=== PATIENT | male | born 1955 | race Caucasian/White ===

== ENCOUNTER 2018-01-30 11:43 | Outpatient (CLI) | payer OTHER ==
[2018-01-30 20:19] VITALS: BP 114/52; BP 118/55; BP 129/61; BP 136/62
[2018-01-30 20:25] VITALS: BP 107/49
--- NOTE | 2018-01-30 23:38 | NUR ---
PATIENT ARRIVED AT 1935 FOR BLOOD TRANSFUSION. BLOOD INFUSED WITHOUT SIDE EFFECTS, AT BEDSIDE, CT SCAN COMPLETED WHILE HERE. PATIENT LEFT AT 2337 WITH NURSING STAFF AND TO FAMILY CAR. PT PLEASANT. VITALS SIGN AND BLOOD DOCUMENTATION COMPLETED.
== END 2018-01-30 23:38 | disposition home or self-care (01) ==
LOC: M.INFUS 11:43 → M.LAB 15:00 → M.INFUS 15:00 → M.3W 19:35 → M.INFUS 23:38
DX: D64.9 Anemia, unspecified (principal); C78.7 Secondary malignant neoplasm of liver and intrahepatic bile duct; C79.89 Secondary malignant neoplasm of other specified sites

== ENCOUNTER → 2018-01-30 | Outpatient (CLI) | payer OTHER | LOC: M.RAD 21:52 | DX: C25.4 Malignant neoplasm of endocrine pancreas (principal); C78.7 Secondary malignant neoplasm of liver and intrahepatic bile duct; E27.9 Disorder of adrenal gland, unspecified; R16.0 Hepatomegaly, not elsewhere classified; Z85.030 Personal history of malignant carcinoid tumor of large intestine ==

== ENCOUNTER → 2018-05-19 | Outpatient (CLI) | payer OTHER | LOC: M.CT 15:58 | DX: C7B.8 Other secondary neuroendocrine tumors (principal); K76.89 Other specified diseases of liver; J98.11 Atelectasis; K46.9 Unspecified abdominal hernia without obstruction or gangrene ==

== ENCOUNTER 2018-09-02 20:50 | Emergency (ER) | payer OTHER ==
[~2018-09-02] VITALS: Ht 185.4 cm; Wt 90.7 kg
[2018-09-02] MEDS ORDERED: CALCIUM ACETAT667 MG PO (21:01)
[2018-09-02] MEDS ORDERED: PRAVACHOL20 MG PO (21:01)
[2018-09-02] MEDS ORDERED: CREON DR 12,001 EACH PO ×2 (21:02)
[2018-09-02] MEDS ORDERED: CENTRUM SILVER1 EAC4 PO (21:02)
[2018-09-02 21:49] LABS: HEMATOCRIT 29.7 % (42.0-52.0); HEMOGLOBIN 9.9 gm/dL (14.0-18.0); MCH 32.2 pg (26.0-34.0); MCHC 33.5 g/dL (28.0-37.0); MCV 96.3 fL (80.0-100.0); MPV 7.2 fl. (7.2-11.1); NUCLEATED RBCS 0 /100WBC; PLATELET COUNT* 184 thou/uL (150-400); RBC 3.08 mil/uL (4.50-6.00); RDW-CV 15.5 % (10.5-14.5); WBC 7.9 thou/uL (4.0-11.0)
[2018-09-02 21:58] LABS: CALCIUM 8.9 mg/dL (8.5-10.1); CREATININE 4.4 mg/dL (0.6-1.3); POTASSIUM 3.7 mmol/L (3.5-5.1)
[2018-09-02 22:02] LABS: ALBUMIN 2.8 g/dL (3.4-5.0); TOTAL BILIRUBIN 0.5 mg/dL (<0.1-1.0); TOTAL PROTEIN 7.3 g/dL (6.4-8.2)
[2018-09-02 22:17] LABS: ABSOLUTE LYMPHOCYTES 0.9 thou/uL (0.8-5.3); ABSOLUTE MONOCYTES 0.4 thou/uL (0.0-1.2); ABSOLUTE NEUTROPHILS 6.6 thou/uL (1.6-8.1); ANISOCYTOSIS 1+; ATYPICAL LYMPHS 1 %; GIANT PLATELETS OCCASIONAL; OVALOCYTES Occasional; PLATELET ESTIMATE ADEQUATE; POLYCHROMASIA Occasional; TEARDROPS Occasional; TOXIC GRANULATION Occasional
[2018-09-03] MEDS ORDERED: HYDROCODON-ACE1 EAC8 PO (00:39)
[2018-09-03 01:04] VITALS: BP 152/77
== END 2018-09-03 01:05 | disposition home or self-care (01) ==
LOC: M.ERS 20:50
PROVIDERS: Physician Assistant
DX: R10.84 Generalized abdominal pain (principal); R10.11 Right upper quadrant pain; Z88.8 Allergy status to other drugs, medicaments and biological substances; Z99.2 Dependence on renal dialysis

== ENCOUNTER 2018-09-08 10:34 | Inpatient (IN) | payer OTHER ==
[~2018-09-08] VITALS: Ht 185.4 cm; Wt 90.7 kg
[~2018-09-08 10:34] MED LIST: CALCIUM ACETAT667 MG PO; CENTRUM SILVER1 EAC4 PO; CREON DR 12,001 EACH PO; HYDROCODON-ACE1 EAC8 PO; PRAVACHOL20 MG PO
[2018-09-08 10:39] VITALS: BP 152/74
[2018-09-08 11:28] LABS: HEMATOCRIT 28.9 % (42.0-52.0); HEMOGLOBIN 9.4 gm/dL (14.0-18.0); MCH 31.1 pg (26.0-34.0); MCHC 32.6 g/dL (28.0-37.0); MCV 95.6 fL (80.0-100.0); MPV 7.4 fl. (7.2-11.1); NUCLEATED RBCS 0 /100WBC; PLATELET COUNT* 166 thou/uL (150-400); RBC 3.02 mil/uL (4.50-6.00); RDW-CV 16.5 % (10.5-14.5); WBC 11.6 thou/uL (4.0-11.0)
[2018-09-08 11:34] LABS: INR 1.2; PROTIME 12.4 Seconds (9.20-11.50)
[2018-09-08 11:35] LABS: CALCIUM 9.2 mg/dL (8.5-10.1); CREATININE 5.7 mg/dL (0.6-1.3); POTASSIUM 4.4 mmol/L (3.5-5.1)
[2018-09-08 11:39] LABS: ALBUMIN 2.1 g/dL (3.4-5.0); TOTAL BILIRUBIN 0.4 mg/dL (<0.1-1.0); TOTAL PROTEIN 6.7 g/dL (6.4-8.2)
[2018-09-08 12:00] LABS: INFLUENZA A ANTIGEN None Detected (None Detect); INFLUENZA B ANTIGEN None Detected (None Detect)
[2018-09-08 12:13] LABS: ABSOLUTE BASOPHILS 0.1 thou/uL (0.0-0.2); ABSOLUTE LYMPHOCYTES 1.2 thou/uL (0.8-5.3); ABSOLUTE NEUTROPHILS 9.3 thou/uL (1.6-8.1)
[2018-09-08 12:14] LABS: HYPOCHROMASIA 1+; MICROCYTES 1+; PLATELET ESTIMATE ADEQUATE
[2018-09-08 12:15] LABS: TOXIC GRANULATION 1+
[2018-09-08 12:49] LABS: URINE BILIRUBIN NEGATIVE (Negative); URINE BLOOD TRACE (Negative); URINE CLARITY CLEAR; URINE COLOR YELLOW; URINE GLUCOSE-RANDOM NEGATIVE (Negative); URINE KETONES NEGATIVE (Negative); URINE LEUKOCYTES-REFLEX NEGATIVE (Negative); URINE NITRITE-REFLEX NEGATIVE (Negative); URINE PROTEIN 2+ (Negative); URINE UROBILINOGEN 0.2 E.U./dl (0.2-1.0)
[2018-09-08 13:00] LABS: BACTERIA-REFLEX 1-9 Few /HPF (None Seen); CASTS None Seen /LPF (None Seen); CRYSTALS None Seen /LPF (None Seen); MUCUS None Seen strn/LPF (None Seen); SQUAMOUS 0-3 Few /LPF (0-3); URINE RBC 3-10 Few /HPF (0-2); URINE WBC-REFLEX 0-5 Rare /HPF (0-5)
[2018-09-08 19:16] VITALS: BP 120/85
[2018-09-08 21:00] VITALS: BP 128/68
[2018-09-09 04:24] LABS: HEMATOCRIT 27.3 % (42.0-52.0); HEMOGLOBIN 8.8 gm/dL (14.0-18.0); MCH 31.6 pg (26.0-34.0); MCHC 32.5 g/dL (28.0-37.0); MCV 97.3 fL (80.0-100.0); MPV 7.3 fl. (7.2-11.1); RBC 2.8 mil/uL (4.50-6.00); RDW-CV 16.1 % (10.5-14.5); WBC 13.2 thou/uL (4.0-11.0)
--- NOTE | 2018-09-09 04:33 | NUR ---
ASSUMED CARE AT START OF SHIFT PT ADMISSION ASSESSMNET AND DATA BASE COMPLETED, NO CONCERNS VOICED , DISCUSSED PLAN OF CARE VERBALIZED UNDERSTANDING AND AGREEABLE.
[2018-09-09 04:39] LABS: ALBUMIN 1.9 g/dL (3.4-5.0); CREATININE 6.2 mg/dL (0.6-1.3); MAGNESIUM 2.1 mg/dL (1.8-2.4); POTASSIUM 5.2 mmol/L (3.5-5.1); TOTAL BILIRUBIN 0.4 mg/dL (<0.1-1.0); TOTAL PROTEIN 6.2 g/dL (6.4-8.2)
[2018-09-09 07:55] VITALS: BP 118/72
[2018-09-09 11:39] VITALS: BP 123/63
--- NOTE | 2018-09-09 16:10 | NUR ---
PERIODICALS LIBRARY ASSISTANT ATTEMPTED TO SPEAK TO THE PATIENT TO DISCUSS HOME SITUATION, AND DISCHARGE PLANNING NEEDS. PATIENT OUT OF THE ROOM AT THIS TIME. CM WILL F/U AT ANOTHER TIME.
--- NOTE | 2018-09-09 17:35 | NUR ---
PT REMAINED ALERT AND ORIENTED THIS SHIFT. PT HAS BEEN VERBALLY ABUSIVE TO STAFF. PT HAS DECLINED WASHOUT WITH SURGERY, WANT TO WAIT TILL FRIDAY AFTER SEVERAL DOSES OF ANTIBIOTICS. PT'S COMPLAINED ABOUT PT BEING NPO AND BLOOD SUGARS. BLOOD SUGAR CHECKED, WAS 116. OFFERED TO MAKE PT AN ACCU CHECK, HOWEVER SAID SHE IS NOT NORMALLY CONCERNED ABOUT BLOOD SUGARS UNLESS PT IS NPO. PT WENT DOWN FOR HEMODIALYSIS, LEFT FOR TIME BEING. PT STATES WANTS TO TAKE PT TO ANOTHER HOSPITAL AFTER DIALYSIS COMPLETED. PT STATED IT IS THERE CHOICE, PT AND TALKED WITH DR. FRY AND HE IS AWARE OF THE SITUATION. FALL RISK PRECAUTIONS IN PLACE. HOURLY ROUNDING COMPLETED. WILL CONTINUE TO MONITOR.
[2018-09-09 18:30] VITALS: BP 130/75
[2018-09-09 20:00] VITALS: BP 119/70
[2018-09-10 05:03] LABS: HEMOGLOBIN 8.8 gm/dL (14.0-18.0); MCH 31.3 pg (26.0-34.0); MCHC 32.5 g/dL (28.0-37.0); MCV 96.4 fL (80.0-100.0); MPV 6.8 fl. (7.2-11.1); RBC 2.8 mil/uL (4.50-6.00); RDW-CV 15.8 % (10.5-14.5); WBC 14.2 thou/uL (4.0-11.0)
[2018-09-10 05:18] LABS: CALCIUM 8.9 mg/dL (8.5-10.1); MAGNESIUM 2.1 mg/dL (1.8-2.4); POTASSIUM 3.8 mmol/L (3.5-5.1)
[2018-09-10 05:19] LABS: CREATININE 4.8 mg/dL (0.6-1.3)
--- NOTE | 2018-09-10 05:55 | NUR ---
Alert and oriented x 4. He was up in the chair at the start of the shift. He did take a shower last evening. He's been in bed since then. Vitals are stable. He's on roomair. He did request pain meds this am for overall generalized pain. He has slept well this shift.
[2018-09-10 08:30] VITALS: BP 136/68
--- NOTE | 2018-09-10 13:09 | CON ---
[address] [address] CONSULTATION Name: HERMINIAGUME Roxanne Room: [address] IN M.R.#: [id number] Admission: 09/08/18 Attend Phys: Marianne Sood MD Discharge: Date of : 53 Report #: [id number] THIS REPORT FOR: //name// CC: Corby Sood DATE OF SERVICE: 09/09/2018 ATTENDING PHYSICIAN: Dr. Sood. REASON FOR EVALUATION: Gram-positive bacilli septicemia in a patient with stage 4 metastatic neuroendocrine tumor, also chronic renal dialysis. HISTORY OF PRESENT ILLNESS: Chart reviewed, the patient examined. This is a 63-year-old gentleman with above-noted medical history, admitted through the Emergency Room with generalized myalgias, arthralgias, had been progressively lethargic post-dialysis the evening prior, had been complaining about abdominal pain as well, describing cramping in nature. He has seen a week prior, was felt to have exacerbation of his pain, given additional analgesics. As part of the evaluation, blood cultures were collected, now with 2/2 growth of Gram-positive bacillus. Chest x-ray was otherwise unremarkable. Lactic acid normal at 0.8, influenza antigen was negative for both A and B, CRP was markedly elevated at 360.1. In addition, complaint of right index pain and swelling prompted imaging with MRI, which raised question of a septic arthritis, perhaps osteomyelitis, has been evaluated. He was seen in dialysis, was given empiric treatment with vancomycin as well as cefepime. He is clearly encephalopathic at this point, does admit to the above described pain. He is not overtly hemodynamically unstable. ALLERGIES: WARFARIN, HEPARIN. CURRENT MEDICATIONS: Include vancomycin, cefepime, pancrelipase, p.r.n. analgesics, antiemetics, and antihistamines. 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 SOCIAL HISTORY: Nonsmoker, no ethanol. FAMILY HISTORY: Noncontributory. REVIEW OF SYSTEMS: Ten-point review of systems otherwise unremarkable with the exception of what is noted above in history of present illness. PHYSICAL EXAMINATION: [place] [address] CONSULTATION Name: GUME HOPE Room: [address] IN [facility]#: [id number] Admission: 09/08/18 Attend Phys: Marianne Sood MD Discharge: Date of : 53 Report #: [id number] GENERAL: He appears chronically ill, undernourished, moderately encephalopathic, moderate discomfort. VITAL SIGNS: Temperature 98.5, pulse 93, respirations 18, blood pressure 123/63. SKIN: Warm. I do not appreciate any rashes. HEENT: Normocephalic. He appears chronically ill. Oropharynx without lesion. NECK: Supple. LUNGS: Diminished breath sounds. Few scattered crackles at the bases. HEART: Regular. Borderline tachycardic, may have soft systolic murmur. ABDOMEN: Mildly distended, soft. There are no peritoneal signs. EXTREMITIES: Lower extremities, otherwise, no cyanosis, no significant edema. GENITOURINARY: Deferred. RECTAL: Deferred. LABORATORY DATA: MRSA PCR was negative. MRI of the right hand showed increased STIR signal throughout the diaphysis and the head of the second proximal phalanx throughout the base, diaphysis of middle phalanx, septic arthritis of the second proximal interphalangeal joint with associated osteomyelitis of the second proximal and middle phalanges cannot be excluded and alternatively the bone marrow edema may be related to degenerative changes, inflammatory. Initial blood cultures 2/2 with growth of Gram-positive bacilli. Chest x-ray was done revealing no acute process. Electrolytes: Sodium 130, potassium 4.4, chloride 195, bicarbonate is 24, anion gap of 11. BUN and creatinine of 57 and 5.7. Glucose of 118. LFTs unremarkable except alkaline phosphatase is elevated at 177, total protein 6.7, albumin 2.1, estimated GFR of 10. Lactic acid 0.8. Influenza antigen negative. CRP of 360.1. CBC: White count of 11.6, H and H 9.4 and 28.9, platelets of 166. Urinalysis 0-5 white cells. Uric acid of 5.3. ASO 49.2. RF elevated at 19.5. ASSESSMENT AND PLAN: Gram-positive bacilli, positive blood cultures in setting of a patient with indwelling dialysis catheter. I discussed with spouse. He has a tendency to develop cutaneous injury with repeated perpetual scratching and picking. It is difficult to ascertain as to the source at this point, but would assume the skin and soft tissue infection, catheter related likely. We will continue empiric therapy with vancomycin as well as cefepime at this point. I had a lengthy discussion with the spouse. We will hold off on removing catheter at this point, but it may well be required. <ELECTRONICALLY SIGNED> By: Brijesh Diop MD 09/10/18 1309 1727 13Joenoch Diop MD /nt
[2018-09-10 15:06] LABS: ANA INTERPRETATION Negative (Negative)
[2018-09-10 16:22] VITALS: BP 142/76
--- NOTE | 2018-09-10 18:58 | NUR ---
ALERT AND ORIENTED X4. UP AD ONEL IN ROOM. IV IS PATENT AND SALINE LOCKED. PAIN BEING MANAGED WITH PO MEDICATION. NAUSEA BEING MANAGED WITH IV NAUSEA MEDICATION. TOLERATING DIET. PATIENTS IS VERBALLY ABUSIVE TO PATIENT AND STAFF. MULTIPLE PHYSICIANS HAVE SPOKE TO PATIENT AND AND ARE GOING BACK AND FORTH ON WHETHER THEY WANT TO PROCEED WITH I&D TOMORROW. VSS ON ROOM AIR. HOURLY ROUNDS HAVE BEEN MAINTAINED THROUGHOUT SHIFT. CALL LIGHT IS WITHIN REACH. NURSING WILL CONTINUE TO MONITOR.
--- NOTE | 2018-09-10 19:55 | NUR ---
RN REVIEWED AND AGREES WITH STUDENT NURSES CHARTING.
[2018-09-10 20:30] VITALS: BP 120/67
--- NOTE | 2018-09-11 04:52 | NUR ---
Alert and oriented x 4. He is up independently in the room. Vitals are stable, he is 96% on roomair. Denies pain or nausea. His rt forefinger is stil red and swollen. We did not discuss if he is going to have the I&D done on his finger today. Today is a dialysis day. He has slept well.
--- NOTE | 2018-09-11 05:30 | NUR ---
End of shift note continued. Patient states he is going to have I&D done today. He has had nothing by mouth since midnight.
[2018-09-11 05:54] LABS: CALCIUM 8.9 mg/dL (8.5-10.1); PHOSPHORUS* 6.1 mg/dL (2.5-4.9); POTASSIUM 4.4 mmol/L (3.5-5.1)
[2018-09-11 06:00] LABS: CREATININE 6.1 mg/dL (0.6-1.3)
[2018-09-11 08:00] VITALS: BP 140/73
--- NOTE | 2018-09-11 12:44 | NUR ---
PT ALERT AND ORIENTED X 4. PT TO GO TO DIALYSIS @ 0745. REFUSED TO ALLOW PT TO GO. VOICE WAS LOUD AND AGGRESSIVE TOWARDS STAFF AND PATIENT. PAGED DR. LEYVA TO DISCUSS. DR. LEYVA RETURNED CALL AND INFORMED US TO RELAY TO PATIENT AND THAT PATIENT SHOULD GO TO DIALYSIS PRIOR TO PRODEDURE. REFUSED TO LET PATIENT GO TO DIALYSIS UNLESS SHE SPOKE DIRECTLY TO PHYSICIANS IN PERSON. SECURITY WAS CALLED TO UNIT DUE TO 'S VERBAL AGGRESSIVENESS TO STAFF AND PATIENT. WAS ESCORTED OFF PREMISES. PATIENT AGREED TO GO TO DIALYSIS AND HAVE I&D PROCEDURE THIS AFTERNOON. PT TAKEN TO DIALYSIS ROOM 319 @ 1000 BY BED.
--- NOTE | 2018-09-11 14:57 | NUR ---
PT WAS TAKEN FROM DIALYSIS TO PACU FOR PROCEDURE TO RIGHT INDEX FINGER AFTER 1400. GIVEN PERMISSION TO UPDATE DAUGHTER, CHUNG. REQUESTED TO CALL SPOUSE, CHRISTINA WITH UPDATE. GIVEN PERMISSION TO BE BACK ON PREMISES FOR PROCEDURE IF DOES NOT BECOME VERBALLY AGGRESSIVE WITH PATIENT AND STAFF.
--- NOTE | 2018-09-11 15:48 | EKG ---
[place] [address] ELECTROCARDIOGRAM REPORT Name: GUME HOPE Room: [address] ADM IN M.R.#: [id number] Admission: 09/08/18 Attend Phys: Marianne Sood MD Discharge: Date of : 53 Report #: [id number] THIS REPORT FOR: //name// [facility] Test Date: 2018-09-11 Test Time: 15:03:46 Pat Name: GUME HOPE Department: Room: [address] Gender: M Surgical Coder: : 1955 Requested By: Wang Sauceda Order Number: [id number] Gisela MD: Dawson Hector Measurements Intervals [place] Rate: 94 P: 41 MI: 144 QRS: -73 QRSD: 144 T: 45 QT: 385 QTc: 482 Interpretive Statements Sinus rhythm RBBB and LAFB Possible left ventricular hypertrophy No previous ECG available for comparison Electronically Signed On 09-11-2018 15:48:36 FINISH CARPENTER by Dawson Hector [email or web address] <ELECTRONICALLY SIGNED> By: Dawson Hector MD, [facility] 09/11/18 1548 D: 01/1502 150 Dawson Hector MD, FACC /EPI
--- NOTE | 2018-09-11 17:23 | NUR ---
PT RETURNED TO UNIT @ 1655. ALERT AND ORIENTED X 4. PT INDICATES PAIN OF 2/10 AT THIS TIME. DENIES NAUSEA. MARGARITA WRAP DRESSING-C/D/I AND ELEVATED ON PILLOW. NURSING TO CONTINUE TO MONITOR.
[2018-09-11 20:00] VITALS: BP 124/67
[2018-09-12 04:36] LABS: ABSOLUTE BASOPHILS 0.1 thou/uL (0.0-0.2); ABSOLUTE EOSINOPHILS 0.1 thou/uL (0.0-0.7); ABSOLUTE LYMPHOCYTES 1.5 thou/uL (0.8-5.3); ABSOLUTE MONOCYTES 0.8 thou/uL (0.0-1.2); ABSOLUTE NEUTROPHILS 9.4 thou/uL (1.6-8.1); BASOPHILS 0.4 %; EOSINOPHILS 0.4 %; HEMATOCRIT 26.7 % (42.0-52.0); HEMOGLOBIN 8.6 gm/dL (14.0-18.0); LYMPHOCYTES 12.4 %; MCH 31.3 pg (26.0-34.0); MCHC 32.1 g/dL (28.0-37.0); MCV 97.5 fL (80.0-100.0); MONOCYTES 6.5 %; MPV 7.6 fl. (7.2-11.1); NUCLEATED RBCS 0 /100WBC; PLATELET COUNT* 172 thou/uL (150-400); POLYS 80.3 %; RBC 2.74 mil/uL (4.50-6.00); RDW-CV 16.2 % (10.5-14.5); WBC 11.7 thou/uL (4.0-11.0)
--- NOTE | 2018-09-12 04:44 | NUR ---
PT REMAINED A&Ox4 THROUGHOUT SHIFT. VITALS STABLE. IV IN L FA PATENT, SL. UP AD NOEL IN ROOM. DENIED INSULIN FOR A BS OF 241, STATED THAT HE HAS NEVER TAKEN INSULIN AND THAT HE DID NOT WANT IT. DRESSING ON R HAND REMAINS CLEAN, DRY AND INTACT. PAIN CONTROLLED WITH NORCO AND MORPHINE. CALL LIGHT WITHIN REACH. HOURLY ROUNDING COMPLETE. WILL CONTINUE TO MONITOR.
[2018-09-12 04:52] LABS: CALCIUM 8.7 mg/dL (8.5-10.1); POTASSIUM 4.5 mmol/L (3.5-5.1)
[2018-09-12 05:04] LABS: CREATININE 5.1 mg/dL (0.6-1.3)
[2018-09-12 07:40] VITALS: BP 123/71
[2018-09-12 15:33] VITALS: BP 139/72
--- NOTE | 2018-09-12 17:25 | NUR ---
ASSUMED CARE OF PATIENT AT APPROX 0730. ALERT AND OREINTED X4. ASSESSMENT COMPLETED AND CHARTED. VSS ON ROOM AIR. NO COMPLAINTS OF NAUSEA. PAIN MINIMAL AND MANAGED WITH ORAL MEDICATION. IRON SUPPLEMENT INFUSED ORDERED, SALINE LOCKED AFTER. PATIENT UP AND WALKING THE UNIT TODAY AND DOING VERY WELL. CALL LIGHT WITHIN REACH AND PATIENT USES APPROPRIATELY. HOURLY ROUNDS COMPLETED. NURSING WILL CONTINUE TO MONITOR.
[2018-09-13 02:08] LABS: GLYCOHEMOGLOBIN (HGB A1C) 5.7 % (4.8-5.6)
[2018-09-13 07:40] VITALS: BP 121/66
[2018-09-13 16:50] VITALS: BP 125/69
--- NOTE | 2018-09-13 17:13 | NUR ---
ASSUMED CARE OF PATIENT AT APPROX 0730. ALERT AND OREINTED X4. ASSESSMENT COMPLETED AND CHARTED. VSS ON ROOM AIR. NO COMPLAINTS OF PAIN, NAUSEA, OR SOA THIS SHIFT. PATEINTS HAS BEEN AT BEDSIDE THIS AFTERNOON AND HAS BEEN PLEASANT WITH STAFF TODAY. PATIENT UP AD ONEL AND WALKING THE UNIT TODAY. SHOWERED TODAY AND BEDDING WAS CHANGED. HOURLY ROUNDS COMPLETED AND NURSING WILL CONTINUE TO MONITOR.
[2018-09-13 20:30] VITALS: BP 112/64
[2018-09-14 07:21] LABS: CALCIUM 8.6 mg/dL (8.5-10.1); CREATININE 7.7 mg/dL (0.6-1.3); POTASSIUM 4.8 mmol/L (3.5-5.1)
--- NOTE | 2018-09-14 07:27 | NUR ---
PATIENT HAS SLEPT WELL THROUGHOUT THE NIGHT. VSS ON RA. PAIN WELL CONTROLLED. MEDICATIONS GIVEN ORDERED AND CHARTED. PATIENT IS UP AD-ONEL AND STEADY. DRESSING TO RIGHT HAND IS C/D/I. IV IN LEFT FOREARM-SL. PATIENT REFUSING TO TAKE INSULIN. PATIENT INSTRUCTED TO USE CALL LIGHT WHEN NEEDING ASSISTANCE. HOURLY ROUNDS MADE. WILL CONTINUE WITH PLAN OF CARE AND NURSING TO MONITOR.
[2018-09-14 07:35] LABS: ABSOLUTE BASOPHILS 0.1 thou/uL (0.0-0.2); ABSOLUTE EOSINOPHILS 0.1 thou/uL (0.0-0.7); ABSOLUTE LYMPHOCYTES 1.5 thou/uL (0.8-5.3); ABSOLUTE MONOCYTES 0.6 thou/uL (0.0-1.2); BASOPHILS 0.5 %; EOSINOPHILS 0.9 %; HEMOGLOBIN 8.2 gm/dL (14.0-18.0); MCH 31.2 pg (26.0-34.0); MCHC 31.6 g/dL (28.0-37.0); MCV 98.6 fL (80.0-100.0); MPV 7.6 fl. (7.2-11.1); NUCLEATED RBCS 0 /100WBC; PLATELET COUNT* 231 thou/uL (150-400); POLYS 81.6 %; RBC 2.64 mil/uL (4.50-6.00); RDW-CV 16.1 % (10.5-14.5); WBC 12.2 thou/uL (4.0-11.0)
[2018-09-14 07:45] VITALS: BP 130/63
[2018-09-14] MEDS ORDERED: NORCO 5-325 TA1 EACH PO (10:57)
[2018-09-14] MEDS ORDERED: AMOXICILLIN 50500 MG PO (10:58)
[2018-09-14 11:36] VITALS: BP 130/63
[2018-09-14 11:44] VITALS: BP 130/63
[2018-09-14] MEDS ORDERED: ATORVASTATIN CA40 MG PO (13:52)
[2018-09-14 15:56] VITALS: BP 137/63
--- NOTE | 2018-09-14 18:17 | NUR ---
ALERT AND ORIENTED X4. UP AD ONEL IN ROOM. IV IS PATENT AND SALINE LOCKED. DENIES NEED FOR PAIN MEDICATION. DENIES NAUSEA. TOLERATING DIET. PATIENT GOT HIS DIALYSIS CATHETER CHANGED OUT THIS AFTERNOON. IN DIALYSIS AT THIS TIME. DRESSING TO RIGHT INDEX FINGER WAS REMOVED BY DR. BEACH AND REAPPLIED BY RN THIS AFTERNOON. VSS ON ROOM AIR. HOURLY ROUNDS HAVE BEEN MAINTAINED THROUGHOUT SHIFT WHILE ON UNIT.
[2018-09-14 18:48] VITALS: BP 130/63
[2018-09-14 18:52] VITALS: BP 130/63
--- NOTE | 2018-09-14 19:36 | NUR ---
RN HAS REVIEWED AND AGREES WITH STUDENT NURSES CHARTING.
--- NOTE | 2018-09-15 07:01 | OP ---
[address] [address] OPERATIVE REPORT Name: HERMINIAGUME Roxanne Room: [address] IN M.R.#: [id number] Admission: 09/08/18 Attend Phys: Marianne Sood MD Discharge: 09/14/18 Date of : 53 Report #: [id number] THIS REPORT FOR: //name// CC: Corby Sood DATE OF SERVICE: 09/11/2018 PREOPERATIVE DIAGNOSES: Right index finger, septic proximal interphalangeal joint; extensor flexor tenosynovitis, same finger. POSTOPERATIVE DIAGNOSES: Right index finger, septic proximal interphalangeal joint; extensor flexor tenosynovitis, same finger. SURGERY PERFORMED: 1. Right index finger extensor flexor incision and debridement of the synovitis with irrigation. 2. Right index finger PIP joint arthrotomy with lavage, synovectomy, bone biopsy of the distal proximal phalanx at the PIP joint to rule out osteomyelitis and cultures of the PIP joint. SURGEON: Brice Velasquez DO MASONRY SUPERVISOR: Dr. Powell. ANESTHESIA: General anesthetic plus local anesthetic 0.25% plain Marcaine at the end across the index finger. COMPLICATIONS: None. SPECIMEN: Bone for bone biopsy. ESTIMATED BLOOD LOSS: 5 mL. DRAINS: None. GROSS FINDINGS: This gentleman had complex history of continuing to having a sausage type index finger on the right hand that demonstrated initially increasing white blood cell counts during his hospital stay with continued pain and passive range of motion and tenderness, especially on both sides, flexor and extensor tendons with erythema, especially over the PIP joint. Intraoperative findings correlated with a bulging PIP joint and through that dorsal incision, the PIP joint was opened. There was extreme synovitis there causing the bulge, but some fluid was present, but it was not purulent in nature. The flexor side also demonstrated synovitis. I opened up over the A1 juventino region and also over the A2 juventino region in that vicinity anyway, but not through the [place]2 [place] [address] OPERATIVE REPORT Name: GUME HOPE Roxanne Room: [address]#: [id number] Admission: 09/08/18 Attend Phys: Marianne Sood MD Discharge: 09/14/18 Date of : 53 Report #: [id number]. Synovitis was noted there as well. No purulence on the flexor side. SURGERY IN DETAIL: This gentleman was taken to the operating room and placed on table, given the benefit of general anesthetic. He underwent chlorhexidine prep and sterile draping for right hand surgery. Surgery progressed with a time out called and verified for the right index finger. At this point in time, I Esmarched the extremity to the wrist level only. I started on the flexor side. Under loupe magnification, an oblique incision was made over the A1 juventino region. Blunt dissection carried down to it. Care was taken to protect the digital nerve. The juventino was opened up and then I moved over the middle phalanx region. Again, an oblique incision was made in this vicinity, opened that up and with a 15 blade scalpel, the flexor tendon was exposed. Synovitis was noted in both regions, so I copiously irrigated this out with a through and through catheter of normal saline. Once this was cleared, I went to the dorsal side. Under loupe magnification, again dorsal incision was made over the middle phalanx and then to the middle aspect of the proximal phalanx midline. Through skin and subcutaneous tissues, a lot of bulging was noted at the PIP joints, so arthrotomy was made through this region and severe amount of synovitis in the PIP joint was removed with rongeur and curettes. At this point in time, I did go ahead and did biopsy of that PIP joint proximal phalanx region to rule out osteomyelitis. I copiously lavage irrigated out the joint, extensor tendon as well. The tendon was repaired with Monocryl 3-0 in nature and skin was closed in all incisions with a running 4-0 nylon. Xeroform, 4 x 4, Kerlix, Stuart wrap dressing was applied, transferred off the table, taken to recovery in stable condition. I attest I was present for all critical aspects of surgery. Needle, instrument and sponge counts correct. <ELECTRONICALLY SIGNED> By: Brice Velasquez DO 09/15/18 0701 1604 1717Brice Velasquez DO /nt
--- NOTE | 2018-09-15 14:59 | CON ---
[facility] [address] [place] [address] CONSULTATION Name: HERMINIAGUME Roxanne Room: [address] IN M.R.#: [id number] Admission: 09/08/18 Attend Phys: Marianne Sood MD Discharge: 09/14/18 Date of : 53 Report #: [id number] THIS REPORT FOR: //name// CC: Corby Sood DATE OF SERVICE: 09/09/2018 REQUESTING PHYSICIAN: Marianne Sood M.D. REASON FOR CONSULTATION: Assist in providing dialysis. HISTORY OF PRESENT ILLNESS: The patient is a very pleasant 63-year-old gentleman with medical history significant for end-stage renal disease. He also has hyperlipidemia, hyperphosphatemia, and history of neuroendocrine tumor which is metastatic to liver and pancreas. He presents with complaints of some migratory polyarthralgias, swelling of the right index finger. Also on Friday when he was on dialysis, at the end of dialysis, he was somewhat lethargic and they had to stop dialysis 30 minutes earlier. So, he is admitted for evaluation of his polyarthralgia. He also is diagnosed with sepsis, his temperature is up, and I was consulted to assist with his problems. PAST MEDICAL HISTORY: As I mentioned earlier. SOCIAL HISTORY: No current tobacco or alcohol abuse. REVIEW OF SYSTEMS: Positive for the symptoms as I mentioned earlier, otherwise negative. FAMILY HISTORY: Noncontributory. MEDICATIONS: Reviewed. PHYSICAL EXAMINATION: GENERAL: He is awake, alert, oriented, in no acute distress. VITAL SIGNS: His blood pressure 118/72, heart rate 87, temperature 36.9 now, respirations 18. HEENT: Pupils are round. NECK: Supple. LUNGS: Decreased air movement. CARDIOVASCULAR: Regular rate. ABDOMEN: Soft. He has right IJ tunneled dialysis catheter. EXTREMITIES: His right index finger is with edema, no erythema. Lower extremities, [place] [address] CONSULTATION Name: GUME HOPE Room: [address]#: [id number] Admission: 09/08/18 Attend Phys: Marianne Sood MD Discharge: 09/14/18 Date of : 53 Report #: [id number] LABORATORY DATA: Hemoglobin is 8.8. Potassium 5.2, BUN 63, creatinine is 5.7. ASSESSMENT: 1. End-stage renal disease. 2. Possible sepsis. 3. Polyarthralgia. 4. Metastatic neuroendocrine tumor. PLAN: 1. Dialysis today. 2. Possible surgical exploration of his right index finger. Discuss this with the surgeon. Thank you very much for asking my opinion in the patient's problems. <ELECTRONICALLY SIGNED> By: Santana Barr MD 09/15/18 1459 1119 [id number] Leslye Barr MD /nt
--- NOTE | 2018-09-16 14:08 | PATH ---
[address] [address] PATHOLOGY RPT PROCEDURE Name: HERMINIAGUME Roxanne Room: [address] IN M.R.#: [id number] Admission: 09/08/18 Date of : 53 Discharge: 09/14/18 Report #: [id number] Path Case #: [id number] [facility] Accession Number: [id number] . 01 Material submitted: . BONE BIOPSY, PROXIMAL DISTAL PHALYNX, PIP JOINT RIGHT FINGER . 01 Clinical history: . Flexor tendon synovitis, right index finger, PIP joint . 02 Diagnosis: Bone biopsy distal, proximal PIP joint phalanx right: - Benign bone with osteomyelitis. (YVETTE/db; 09/15/2018) LBQ/09/15/2018 . 02 Electronically signed: . Curly Geller MD, Pathologist NPI- [id number] . 01 Gross description: . Received in formalin labeled "Gume Bowser, bone BX distal, proximal PIP joint phalanx, right," is a fragment of granular, pale yellow-perea bone measuring 0.4 x 0.3 x 0.2 cm in greatest dimensions. The specimen is submitted entirely in cassette A1, following light decalcification. (DAC; 09/14/2018) XDC/XDC . 02 Pathologist provided ICD-10: M86.8X4 . 02 CPT . 908162, [id number] Specimen Comment: A courtesy copy of this report has been sent to Specimen Comment: [phone], , . Specimen Comment: Report sent to , DR ARROYO / DR FRY Specimen Comment: A duplicate report has been generated due to demographic updates. Performed at: [facility] [address], [place], [place] [id number] MD Kashif Pastor MD Phone: [phone] Performed at: [address] [address] [address], [place], [place] [id number] MD Curly Geller MD Phone: [phone]
--- NOTE | 2018-09-16 15:23 | CON ---
[address] [address] CONSULTATION Name: GUME HOPE Room: [address] IN M.R.#: [id number] Admission: 09/08/18 Attend Phys: Marianne Sood MD Discharge: 09/14/18 Date of : 53 Report #: [id number] THIS REPORT FOR: //name// CC: Corby Sood DATE OF SERVICE: 09/10/2018 REASON FOR CONSULTATION: Metastatic neuroendocrine carcinoma to the liver. REQUESTING PHYSICIAN: Dr. Cordero. The patient was seen on . This is a late entry. 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 He has end-stage renal disease. He is on dialysis as well. He has been under care of oncologist in [facility]. He is interested in switching care to cancer center closer to his home. He tells me he has a history that he was diagnosed with low grade neuroendocrine carcinoma in 08/2017. He had liver biopsy done in [facility]. Diagnosis was made at [facility]. He decided to seek second opinion at [facility]. He was advised that he has stage 4 noncurable cancer and was started on Sandostatin. He admits that he had marked severe diarrhea before Sandostatin initiation. Since Sandostatin was started, his diarrhea resolved. He has been having serial CT scans. He had CT scan in early April and was told that his cancer "was shrinking." He was admitted to the hospital at [facility] with swelling of right index finger. He presented to Emergency Room last week with abdominal pain to [facility]. No acute process was found. He was discharged home and was told to follow up with oncologist. He has not been able to contact oncology physician. He was not happy with interaction with his nurse. He is interested in changing Medical Oncology. He is doing okay. He does not have abdominal pain. He is admitted now with right index finger infection. Denies nausea, vomiting, abdominal pain. PAST MEDICAL HISTORY: Significant for end-stage renal disease, metastatic low grade carcinoma of the pancreas to the liver. 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 REVIEW OF SYSTEMS: See above. PHYSICAL EXAMINATION: GENERAL: Reveals chronically ill-appearing man, not in acute distress. VITAL SIGNS: Blood pressure 119/70, heart rate is 109, temperature 98.8, respirations 18. [place] [address] CONSULTATION Name: GUME HOPE Room: [address]#: [id number] Admission: 09/08/18 Attend Phys: Marianne Sood MD Discharge: 09/14/18 Date of : 53 Report #: [id number] NECK: Supple. HEART: Normal S1, S2. ABDOMEN: Soft. EXTREMITIES: Lower extremitas no edema. There is swelling of right index finger. ASSESSMENT AND PLAN: 1. Cellulitis. The patient does not have any contraindications from oncological standpoint for any surgical intervention or antibiotics. 2. Low grade neuroendocrine carcinoma metastatic to liver. The patient is requesting a second opinion on the pathology. Pathology slides will be reviewed at [facility]. I advised him to continue follow up with Dr. Wu, my partner. He is interested to make appointment for followup when the patient is released from the hospital. Thank you very much for allowing me to participate in care of this patient. <ELECTRONICALLY SIGNED> By: Duran Anthony MD 09/16/18 1523 1205 1535Duran Anthony MD /nt
== END 2018-09-14 20:30 | disposition home or self-care (01) | DRG 981 ==
LOC: M.ERS 10:34 → M.ORTHSURG 12:03 → M.TBA-ER 12:03 → M.ORTHSURG 18:23
PROVIDERS: Emergency Medicine; Family Medicine; Internal Medicine; ADMIT Internal Medicine
PROC: 5A1D70Z Performance of Urinary Filtration, Intermittent, Less than 6 Hours Per Day (ICD-10-PCS; principal; 2018-09-09)
PROC: 0RBW0ZZ Excision of Right Finger Phalangeal Joint, Open Approach (ICD-10-PCS; 2018-09-11)
PROC: 0PBT0ZX Excision of Right Finger Phalanx, Open Approach, Diagnostic (ICD-10-PCS; 2018-09-11)
PROC: 0LB70ZZ Excision of Right Hand Tendon, Open Approach (ICD-10-PCS; 2018-09-11)
PROC: 0J2TXYZ Change Other Device in Trunk Subcutaneous Tissue and Fascia, External Approach (ICD-10-PCS; 2018-09-14)
PROC: B5181ZZ Fluoroscopy of Superior Vena Cava using Low Osmolar Contrast (ICD-10-PCS; 2018-09-14)
DX: T80.211A Bloodstream infection due to central venous catheter, initial encounter (principal); N18.6 End stage renal disease; A40.3 Sepsis due to Streptococcus pneumoniae; M00.9 Pyogenic arthritis, unspecified; Q79.6 Ehlers-Danlos syndromes; E87.1 Hypo-osmolality and hyponatremia; C7A.8 Other malignant neuroendocrine tumors; C78.7 Secondary malignant neoplasm of liver and intrahepatic bile duct; C78.89 Secondary malignant neoplasm of other digestive organs; E78.5 Hyperlipidemia, unspecified; M65.841 Other synovitis and tenosynovitis, right hand; D63.1 Anemia in chronic kidney disease; E83.39 Other disorders of phosphorus metabolism; D50.9 Iron deficiency anemia, unspecified; E11.65 Type 2 diabetes mellitus with hyperglycemia; E11.22 Type 2 diabetes mellitus with diabetic chronic kidney disease; M13.841 Other specified arthritis, right hand; Y83.8 Other surgical procedures as the cause of abnormal reaction of the patient, or of later complication, without mention of misadventure at the time of the procedure; Z85.05 Personal history of malignant neoplasm of liver; Z85.07 Personal history of malignant neoplasm of pancreas; Y92.89 Other specified places as the place of occurrence of the external cause; Z99.2 Dependence on renal dialysis; Z79.899 Other long term (current) drug therapy; Z88.8 Allergy status to other drugs, medicaments and biological substances

== ENCOUNTER → 2018-10-16 | Outpatient (CLI) | payer OTHER ==
[~2018-10-16] VITALS: Ht 182.9 cm; Wt 90.7 kg
[~2018-10-16] MED LIST changes: +AMOXICILLIN 50500 MG PO; +ATORVASTATIN CA40 MG PO; +FISH OIL 1,001000 M2 PO; +NORCO 5-325 TA1 EACH PO
[2018-10-16 16:20] VITALS: BP 126/78
[2018-10-16 17:15] VITALS: BP 126/69
== END | disposition home or self-care (01) ==
LOC: M.INT 10-08 14:00
DX: T82.49XA Other complication of vascular dialysis catheter, initial encounter (principal); Z85.89 Personal history of malignant neoplasm of other organs and systems; Z88.8 Allergy status to other drugs, medicaments and biological substances; Z79.899 Other long term (current) drug therapy; Y83.8 Other surgical procedures as the cause of abnormal reaction of the patient, or of later complication, without mention of misadventure at the time of the procedure

== ENCOUNTER 2021-09-10 11:25 | Inpatient (IN) | payer OTHER, MEDICARE ==
[~2021-09-10] VITALS: Ht 185.4 cm; Wt 71.2 kg
[~2021-09-10 11:25] MED LIST changes: +PRAVACHOL 20 MG20 M1 PO
[2021-09-10 11:34] VITALS: BP 92/55
[2021-09-10 12:19] LABS: ABSOLUTE LYMPHOCYTES 1.3 thou/uL (0.8-5.3); ABSOLUTE MONOCYTES 0.3 thou/uL (0.0-1.2); ABSOLUTE NEUTROPHILS 3.8 thou/uL (1.6-8.1); BASOPHILS 0.9 %; HEMATOCRIT 30.9 % (42.0-52.0); HEMOGLOBIN 9.5 gm/dL (14.0-18.0); LYMPHOCYTES 23.6 %; MCH 26.9 pg (26.0-34.0); MCHC 30.6 g/dL (28.0-37.0); MONOCYTES 5.9 %; MPV 7.4 fl. (7.2-11.1); NUCLEATED RBCS 0 /100WBC; PLATELET COUNT* 188 thou/uL (150-400); POLYS 69.6 %; RBC 3.51 mil/uL (4.50-6.00); WBC 5.4 thou/uL (4.0-11.0)
[2021-09-10 12:28] LABS: CREATININE 6.1 mg/dL (0.6-1.3); POTASSIUM 4.1 mmol/L (3.5-5.1)
[2021-09-10 12:35] LABS: INFLUENZA A ANTIGEN Negative (Negative); INFLUENZA B ANTIGEN Negative (Negative)
[2021-09-10 12:39] LABS: ALBUMIN 2.1 g/dL (3.4-5.0); TOTAL BILIRUBIN 0.4 mg/dL (<0.1-1.0); TOTAL PROTEIN 5.9 g/dL (6.4-8.2)
[2021-09-10 12:59] LABS: BE -1.5 mmol/L (-2 to +3); PO2 63.3 mmHg (75.0-100.0); pH 7.308 (7.340-7.450)
[2021-09-10 13:12] LABS: PCO2 50.4 mmHg (35.0-45.0)
--- NOTE | 2021-09-10 14:02 | NUR ---
PT REMOVED NONREBREATHER TO EAT AND HIS O2 SAT DROPPED TO 56%. THE NONREBREATHER WAS REAPPLIED AND HIS CURRENT O2 IS 96%.
[2021-09-10 16:45] VITALS: BP 109/61
[2021-09-10 22:15] VITALS: BP 160/79
[2021-09-10 22:29] VITALS: BP 148/101
[2021-09-11 02:23] LABS: BE -4.3 mmol/L (-2 to +3)
[2021-09-11 02:26] LABS: PCO2 50.6 mmHg (35.0-45.0); pH 7.271 (7.340-7.450)
[2021-09-11 02:27] LABS: PO2 132.3 mmHg (75.0-100.0)
[2021-09-11 04:25] VITALS: BP 91/59
--- NOTE | 2021-09-11 06:50 | NUR ---
PT ARRIVED TO ROOM 101 FROM ED AT 2200. NURSING ASSESSMENT COMPLETED, PVC MONITOR IN PLACE, TRACING ST 120'S UPON ARRIVAL. HHFNC 55L 100% Fi02. FEVER THIS SHIFT 103.1, ACETAMINOPHEN GIVEN AND EFFECTIVE. CRITICAL ABG'S RECEIVED AT 0224. YOUCALLMD SENT TO [facility] RECEIVED, NO NEW ORDERS. HOURLY ROUNDING COMPLETED. Q2H REPOSITIONING COMPLETED. CALL LIGHT WTIHIN REACH.
[2021-09-11 07:25] VITALS: BP 92/50
--- NOTE | 2021-09-11 10:02 | EKG ---
[place] [address] ELECTROCARDIOGRAM REPORT Name: HERMINIAGUMELOY DUEÑAS Room: [address] IN ..#: [id number] Admission: 09/10/21 Attend Phys: Casimiro Rich Discharge: Date of : 53 Date of Service: 09/10/21 1147 Report #: [id number] THIS REPORT FOR: //name// [facility] ED Test Date: 2021-09-10 Test Time: 11:47:36 Pat Name: GUME HOPE Department: Room: Gender: M Business Intelligence Engineer: LEATHA : 1955 Requested By: Mary Anne Tyler Order Number: [id number] MD: Dawson Hector Measurements Intervals [place] Rate: 92 P: 43 MT: 153 QRS: -72 QRSD: 159 T: 32 QT: 392 QTc: 485 Interpretive Statements Sinus rhythm Ventricular premature complex Incomplete right bundle branch block with left axis deviation Left ventricular hypertrophy Compared to ECG 09/11/2018 15:03:46 Ventricular premature complex(es) now present Intraventricular conduction delay persists Left anterior fascicular block still suggested IVCD of the right type persists Electronically Signed On 09-10-2021 14:13:13 PERSONAL LOAN SPECIALIST by Dawson Hector [email or web address] <ELECTRONICALLY SIGNED> By: Dawson Hector MD, [facility] 09/10/21 1413 1147 1147 Dawson Hector MD, [facility] /EPI
--- NOTE | 2021-09-11 11:30 | 2DMMODE ---
[place] [address] 2 D/M-MODE ECHOCARDIOGRAM Name: GUME HOPE Room: [address] IN [place].#: [id number] Admission: 09/10/21 Attend Phys: Casimiro Rich Discharge: Date of : 53 Date of Service: 09/11/21 1130 Report #: [id number] THIS REPORT FOR: cc: Corby Reynoso Chad W. DO Holkins,Dawson Waters MD [facility] ~ APPROVED REPORT Study performed: 09/11/2021 09:14:27 EXAM: Comprehensive 2D, Doppler, and color-flow Echocardiogram Patient Location: In-Patient Room #: [facility] Status: routine BSA: 2.44 HR: 64 bpm BP: 91/59 mmHg Rhythm: NSR Other Information Study Quality: Good Indications Dyspnea 2D Dimensions IVSd: 12.98 (7-11mm) LVOT Diam: 22.84 (18-24mm) LVDd: 50.39 mm PWd: 11.11 (7-11mm) LVDs: 35.44 (25-40mm) Aortic Root: 36.34 mm Volumes Left Atrial Volume (Systole) LA ESV Index: 28.10 mL/m2 Aortic Valve AoV Peak Zac.: 1.67 m/s AO Peak Gr.: 11.22 mmHg LVOT Max P.31 mmHg AO Mean Gr.: 6.52 mmHg LVOT Mean P.66 mmHg LVOT Max V: 1.26 m/s AO V2 VTI: 32.91 cm LVOT Mean V: 0.73 m/s DAVID (VTI): 3.27 cm2 LVOT V1 VTI: 26.25 [place] [address] 2 D/M-MODE ECHOCARDIOGRAM [facility] Room: [address] IN M.R.#: [id number] Admission: 09/10/21 Attend Phys: Casimiro Rich Discharge: Date of : 53 Date of Service: 09/11/21 1130 Report #: [id number] Mitral Valve E/A Ratio: 2.00 MV Decel. Time: 269.35 ms MV E Max Zac.: 1.32 m/s MV PHT: 78.11 ms MVA (PHT): 2.82 cm2 TDI E/Lateral E': 10.15 E/Medial E': 14.67 Medial E' Zac.: 0.09 m/s Lateral E' Zac.: 0.13 m/s Pulmonary Valve PV Peak Zac.: 1.07 m/s PV Peak Gr.: 4.59 mmHg Tricuspid Valve RAP Estimate: 15.00 mmHg TR Peak Gr.: 35.87 mmHg RVSP: 50.00 mmHg PA Pressure: 50.00 mmHg Left Ventricle The left ventricle is normal size. There is normal LV segmental wall motion. Mild concentric left ventricular hypertrophy. Left ventricular systolic function is normal. The left ventricular ejection fraction is within the normal range. LVEF is 60%. Grade IV - fixed restrictive diastolic dysfunction. Right Ventricle The right ventricle is normal size. The right ventricular systolic function is normal. Atria The left atrium size is normal. The right atrium size is normal. Aortic Valve Mild aortic valve sclerosis. No aortic regurgitation is present. There is no aortic valvular stenosis. Mitral Valve The mitral valve is normal in structure. Trace mitral regurgitation. No evidence of mitral valve stenosis. Tricuspid Valve The tricuspid valve is normal in structure. Moderate tricuspid regurgitation. Moderate pulmonary hypertension. The RVSP is [address] [place] [address] 2 D/M-MODE ECHOCARDIOGRAM Name: GUME HOPE RIKI Room: [address] IN [facility]#: [id number] Admission: 09/10/21 Attend Phys: Casimiro Rich Discharge: Date of : 53 Date of Service: 09/11/21 1130 Report #: [id number]. Pulmonic Valve The pulmonary valve is normal in structure. There is no pulmonic valvular regurgitation. Great Vessels The aortic root is normal in size. IVC is dilated and collapses <50% with inspiration. Pericardium There is no pericardial effusion. <Conclusion> The left ventricle is normal size. Mild concentric left ventricular hypertrophy. Left ventricular systolic function is normal. The left ventricular ejection fraction is within the normal range. LVEF is 60%. The right ventricle is normal size. The left atrium size is normal. Mild aortic valve sclerosis. No aortic regurgitation is present. There is no aortic valvular stenosis. The mitral valve is normal in structure. The tricuspid valve is normal in structure. Moderate tricuspid regurgitation. Moderate pulmonary hypertension. The RVSP is 38 mmHg. IVC is dilated and collapses <50% with inspiration. There is no pericardial effusion. There is normal LV segmental wall motion. <ELECTRONICALLY SIGNED> By: Dawson Hector MD, FACC 09/11/21 1130 1130 1130 Dawson Hector MD, FACC /INF
[2021-09-11 12:00] VITALS: BP 96/52
--- NOTE | 2021-09-11 12:23 | CON ---
[address] [address] CONSULTATION Name: GUME HOPE Room: [address] IN M.R.#: [id number] Admission: 09/10/21 Attend Phys: Acacia Ellsworth Discharge: Date of : 53 Report #: [id number] THIS REPORT FOR: cc: Corby Reynoso Chad W. DO Khan, Abid R. MD ~ DATE OF CONSULTATION: 09/10/2021 NEPHROLOGY CONSULT CONSULTING PHYSICIAN: Dr. Rich. REASON FOR CONSULT: End-stage kidney disease. HISTORY OF PRESENT ILLNESS: A 66-year-old gentleman well known to me with a history of end-stage kidney disease, who was diagnosed with COVID-19 infection about a week and a half ago, has been dialyzing at the [facility], which is assigned for COVID-19 infected patients. He normally dialyzes in the [facility] otherwise. He has had some increased confusion and some increased shortness of breath with hypoxia. A CT angio of the chest has been ordered to exclude PE. He has otherwise been doing his dialysis without any difficulty, has no complaints otherwise. REVIEW OF SYSTEMS: Constitutional, psych, heme, eyes, ENT, respiratory, cardiac, GI, , endocrine, all negative except as documented above. PAST MEDICAL HISTORY: End-stage kidney disease, on hemodialysis; history of neuroendocrine tumors followed at , secondary hyperparathyroidism, chronic anemia. FAMILY HISTORY: Nonpertinent in this 66-year-old gentleman. SOCIAL HISTORY: . Past use of cigarettes. PHYSICAL EXAMINATION: VITAL SIGNS: Blood pressure 97/53, pulse 83, respirations 13, and temperature 37.2. GENERAL: No distress. EYES: Open. EARS: Externally normal. CARDIOVASCULAR: Regular rate. LUNGS: Diminished. ABDOMEN: Soft. MUSCULOSKELETAL: Nontender. PSYCHIATRIC: Awake, [place] [address] CONSULTATION Name: GUME HOPE Room: [address] IN [facility]#: [id number] Admission: 09/10/21 Attend Phys: Acacia Ellsworth Discharge: Date of : 53 Report #: [id number] LABORATORY DATA: White cell count 5.4, hemoglobin 9.5, and platelets 188. Sodium 136, potassium 4.1, chloride 98, bicarbonate 27, BUN 33, creatinine 6.1, glucose 65, calcium 8 and albumin 2.1. DIAGNOSTIC DATA: Chest x-ray is consistent with volume overload. ASSESSMENT: 1. End-stage kidney disease, hemodialysis Friday, Friday and Friday at the [facility]. 2. COVID-19 infection. 3. Secondary hyperparathyroidism. 4. Chronic anemia. 5. History of neuroendocrine tumor. PLAN: We will dialyze the patient today and follow for dialysis needs. Thank you for requesting my opinion in the care and management of this patient. <ELECTRONICALLY SIGNED> By: Chay Rock MD 09/11/21 1223 1357 1841Abiacacia Rock MD /nt
--- NOTE | 2021-09-11 15:07 | NUR ---
CM ATTEMPTED TO COMPLETE ASSESSMENT BY CALLING ROOM AND AUTHORIZED CONTACT (CHRISTINA HOPE -[phone]), BUT WAS UNABLE TO SPEAK WITH ANYONE. A VOICEMAIL WAS LEFT. CM TO FOLLOW.
[2021-09-11 16:00] VITALS: BP 108/63
[2021-09-11 20:00] VITALS: BP 101/54
[2021-09-12] VITALS: BP 109/59
[2021-09-12 04:24] LABS: HEMATOCRIT 30.9 % (42.0-52.0); HEMOGLOBIN 9.5 gm/dL (14.0-18.0); MCH 26.7 pg (26.0-34.0); MCHC 30.7 g/dL (28.0-37.0); MCV 86.9 fL (80.0-100.0); MPV 7.8 fl. (7.2-11.1); NUCLEATED RBCS 0 /100WBC; PLATELET COUNT* 241 thou/uL (150-400); RBC 3.56 mil/uL (4.50-6.00); RDW-CV 18.5 % (10.5-14.5); WBC 6.5 thou/uL (4.0-11.0)
[2021-09-12 04:54] LABS: ALBUMIN 2.1 g/dL (3.4-5.0); CALCIUM 8.5 mg/dL (8.5-10.1); CREATININE 5.6 mg/dL (0.6-1.3); MAGNESIUM 2.2 mg/dL (1.8-2.4); PHOSPHORUS* 8.4 mg/dL (2.5-4.9); POTASSIUM 4.5 mmol/L (3.5-5.1); TOTAL BILIRUBIN 0.3 mg/dL (<0.1-1.0); TOTAL PROTEIN 5.8 g/dL (6.4-8.2)
[2021-09-12 04:59] VITALS: BP 99/51
[2021-09-12 05:04] LABS: BE -2.8 mmol/L (-2 to +3); PO2 105.9 mmHg (75.0-100.0)
[2021-09-12 05:10] LABS: PCO2 58.8 mmHg (35.0-45.0); pH 7.246 (7.340-7.450)
[2021-09-12 07:27] VITALS: BP 108/61
[2021-09-12 08:39] LABS: ABSOLUTE MONOCYTES 0.5 thou/uL (0.0-1.2); ANISOCYTOSIS 1+; PLATELET ESTIMATE ADEQUATE
--- NOTE | 2021-09-12 09:42 | EKG ---
[place] [address] ELECTROCARDIOGRAM REPORT Name: GUME HOPE SPENSER Room: [address] ADM IN M.R.#: [id number] Admission: 09/10/21 Attend Phys: Casimiro Rich Discharge: Date of : 53 Date of Service: 09/10/21 1148 Report #: [id number] THIS REPORT FOR: //name// [facility] ED Test Date: 2021-09-10 Test Time: 11:48:22 Pat Name: GUME HOPE Department: Room: [address] Gender: M Trestle Builder: LEATHA : 1955 Requested By: Mary Anne Freitas Order Number: [id number] MD: Dawson Hector Measurements Intervals [place] Rate: 91 P: 42 CA: 173 QRS: -71 QRSD: 158 T: 22 QT: 416 QTc: 512 Interpretive Statements Sinus rhythm Probable left atrial enlargement Incomplete right bundle branch block with left anterior hemiblock Left ventricular hypertrophy Compared to ECG 09/11/2018 15:03:46 Interventricular conduction delay of the right type persists Electronically Signed On 09-12-2021 9:42:25 HANDBAG FRAMES INSPECTOR by Dawson Hector [email or web address] <ELECTRONICALLY SIGNED> By: Dawson Hector MD, [facility] 09/12/21 0942 1148 1148 Dawson Hector MD, [facility] /EPI
[2021-09-12 14:46] LABS: BE -0.9 mmol/L (-2 to +3); PCO2 47.9 mmHg (35.0-45.0); pH 7.339 (7.340-7.450)
[2021-09-12 14:48] LABS: PO2 177.9 mmHg (75.0-100.0)
--- NOTE | 2021-09-12 16:30 | NUR ---
CM ATTEMPTED TO COMPLETE ASSESSMENT BY CALLING AUTHORIZED CONTACT (CHRISTINA HOPE - [phone]) BUT WAS UNABLE TO MAKE CONTACT. CM LEFT VOICEMAIL. CM TO ATTEMPT ASSESSMENT AGAIN. CM TO FOLLOW FOR FUTURE DC NEEDS.
[2021-09-12 17:09] VITALS: BP 111/62
[2021-09-12 20:15] VITALS: BP 111/70
[2021-09-13] VITALS (8 sets, daily range): BP systolic 101–154; BP diastolic 58–81
[2021-09-13 09:39] LABS: ABSOLUTE LYMPHOCYTES 0.3 thou/uL (0.8-5.3); ABSOLUTE MONOCYTES 0.2 thou/uL (0.0-1.2); ABSOLUTE NEUTROPHILS 4.6 thou/uL (1.6-8.1); BASOPHILS 0.2 %; EOSINOPHILS 0.1 %; HEMATOCRIT 30.6 % (42.0-52.0); HEMOGLOBIN 9.3 gm/dL (14.0-18.0); LYMPHOCYTES 6.7 %; MCH 26.7 pg (26.0-34.0); MCHC 30.4 g/dL (28.0-37.0); MCV 87.9 fL (80.0-100.0); MONOCYTES 3.4 %; MPV 7.8 fl. (7.2-11.1); NUCLEATED RBCS 0 /100WBC; PLATELET COUNT* 218 thou/uL (150-400); POLYS 89.6 %; RBC 3.48 mil/uL (4.50-6.00); RDW-CV 18.8 % (10.5-14.5); WBC 5.1 thou/uL (4.0-11.0)
[2021-09-13 09:46] LABS: ALBUMIN 2.1 g/dL (3.4-5.0); POTASSIUM 4.3 mmol/L (3.5-5.1); TOTAL BILIRUBIN 0.3 mg/dL (<0.1-1.0)
[2021-09-13 09:48] LABS: CREATININE 4.4 mg/dL (0.6-1.3)
--- NOTE | 2021-09-13 16:05 | NUR ---
CM ASSESSMENT ASSESSMENT COMPLETED WITH PT VIA PHONE. PT LIVES IN SINGLE STORY HOME WITH AND DAUGHTER. PT IND WITH ADLS. PT HAS NO HX OF DME, HH, SNF, OR ARU. PT PLAN TO RETURN HOME UPON DC. 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 CM TO FOLLOW.
--- NOTE | 2021-09-13 18:07 | NUR ---
REPORT CALLED TO FACILITY IN [facility]. PATIENT WILL BE TRANASFERRED VIA WHEELCHAIR VAN TO FACILITY. PATIENT IS STABLE AND IS AWARE HE IS TO GO TO THIS FACILITY. BELONGINGS AND PAPERWORK WILL BE SENT.
--- NOTE | 2021-09-13 18:58 | NUR ---
THIS SHIFT, PATIENT WAS FAIRLY QUIET AND STABLE. DID GET UP IN CHAIR X1 TODAY, AND TOLERATED WELL. PATIENT ALSO HAD CXR AT 1700. PATIENT WILL HAVE DIALYSIS TOMORROW. IV SITE LFA PATENT. DID HAVE ANTIBIOTICS ORDERED. PATIENT WAS PLACED ON 9 LITERS NCAT THIS TIME. WAS ON BIPAP THIS AM.
[2021-09-14 04:00] VITALS: BP 122/72
[2021-09-14 04:19] LABS: ABSOLUTE LYMPHOCYTES 0.5 thou/uL (0.8-5.3); ABSOLUTE MONOCYTES 0.2 thou/uL (0.0-1.2); ABSOLUTE NEUTROPHILS 3.9 thou/uL (1.6-8.1); BASOPHILS 0.2 %; HEMATOCRIT 30.7 % (42.0-52.0); HEMOGLOBIN 9.5 gm/dL (14.0-18.0); MCH 26.9 pg (26.0-34.0); MCV 86.7 fL (80.0-100.0); MONOCYTES 4.4 %; MPV 7.5 fl. (7.2-11.1); NUCLEATED RBCS 0 /100WBC; PLATELET COUNT* 196 thou/uL (150-400); POLYS 84.4 %; RBC 3.54 mil/uL (4.50-6.00); RDW-CV 18.2 % (10.5-14.5); WBC 4.7 thou/uL (4.0-11.0)
[2021-09-14 04:31] LABS: CALCIUM 8.1 mg/dL (8.5-10.1); MAGNESIUM 1.9 mg/dL (1.8-2.4); PHOSPHORUS* 4.2 mg/dL (2.5-4.9); POTASSIUM 4.1 mmol/L (3.5-5.1); TOTAL BILIRUBIN 0.3 mg/dL (<0.1-1.0); TOTAL PROTEIN 5.3 g/dL (6.4-8.2)
[2021-09-14 04:35] LABS: CREATININE 5.6 mg/dL (0.6-1.3)
[2021-09-14 05:50] LABS: BE -4.6 mmol/L (-2 to +3); PO2 117.2 mmHg (75.0-100.0)
[2021-09-14 05:54] LABS: PCO2 51.8 mmHg (35.0-45.0); pH 7.258 (7.340-7.450)
[2021-09-14 08:00] VITALS: BP 103/64
[2021-09-14 12:18] VITALS: BP 116/68
[2021-09-14 16:00] VITALS: BP 122/79
--- NOTE | 2021-09-14 16:55 | NUR ---
CM FOLLOWUP PT NOT MED CLEAR AND ON HIFLOW O2. PT MAY NEED HOME O2 AT DC. PT TO STAY THROUGH THE WEEKEND. CM TO FOLLOW.
[2021-09-14 20:00] VITALS: BP 108/70
[2021-09-15] VITALS: BP 120/57
[2021-09-15 04:00] VITALS: BP 130/70
[2021-09-15 05:48] LABS: ABSOLUTE LYMPHOCYTES 0.6 thou/uL (0.8-5.3); ABSOLUTE MONOCYTES 0.2 thou/uL (0.0-1.2); ABSOLUTE NEUTROPHILS 3.2 thou/uL (1.6-8.1); BASOPHILS 0.4 %; HEMATOCRIT 35.4 % (42.0-52.0); LYMPHOCYTES 14.6 %; MCH 26.5 pg (26.0-34.0); MCV 85.5 fL (80.0-100.0); MONOCYTES 5.8 %; MPV 6.9 fl. (7.2-11.1); NUCLEATED RBCS 0 /100WBC; PLATELET COUNT* 200 thou/uL (150-400); POLYS 79.2 %; RBC 4.14 mil/uL (4.50-6.00); RDW-CV 18.1 % (10.5-14.5); WBC 4.1 thou/uL (4.0-11.0)
[2021-09-15 06:08] LABS: PREALBUMIN 18.4 mg/dL (18.0-35.7)
[2021-09-15 06:48] LABS: ALBUMIN 2.3 g/dL (3.4-5.0); CALCIUM 8.4 mg/dL (8.5-10.1); MAGNESIUM 1.9 mg/dL (1.8-2.4); POTASSIUM 3.6 mmol/L (3.5-5.1); TOTAL BILIRUBIN 0.4 mg/dL (<0.1-1.0); TOTAL PROTEIN 5.9 g/dL (6.4-8.2)
[2021-09-15 06:53] LABS: CREATININE 4.5 mg/dL (0.6-1.3)
[2021-09-15 08:00] VITALS: BP 117/68
[2021-09-15 09:32] LABS: BE 0.5 mmol/L (-2 to +3); PO2 64.3 mmHg (75.0-100.0); pH 7.345 (7.340-7.450)
[2021-09-15 09:37] LABS: PCO2 50.2 mmHg (35.0-45.0)
[2021-09-15 12:38] VITALS: BP 106/58
[2021-09-15 17:11] VITALS: BP 115/60
[2021-09-15 19:50] VITALS: BP 96/43
[2021-09-16 00:05] VITALS: BP 108/62
[2021-09-16 04:00] VITALS: BP 119/65
--- NOTE | 2021-09-16 04:22 | NUR ---
PATIENT HAS REMAINED ALERT AND ORIENTED X 4 THROUGHOUT THE SHIFT AND RESTING QUIETLY ON HOURLY ROUNDS. O2 AT 8L/MIN DURING THE EVENING AND BIPAP HS. O2 SATS UPPER 90'S. VITAL SIGNS STABLE. PATIENT STATES FEELING BETTER, ESPECIALLY AFTER EVENING SHOWER. UP SBA FOR SAFETY. BM THIS SHIFT. CONTINUE TO MONITOR.
[2021-09-16 05:10] LABS: HEMATOCRIT 32.6 % (42.0-52.0); HEMOGLOBIN 10.1 gm/dL (14.0-18.0); MCH 26.6 pg (26.0-34.0); MCV 85.7 fL (80.0-100.0); MPV 7.6 fl. (7.2-11.1); NUCLEATED RBCS 0 /100WBC; PLATELET COUNT* 184 thou/uL (150-400); RDW-CV 17.8 % (10.5-14.5); WBC 4.8 thou/uL (4.0-11.0)
[2021-09-16 05:30] LABS: ALBUMIN 2.3 g/dL (3.4-5.0); CALCIUM 8.5 mg/dL (8.5-10.1); TOTAL BILIRUBIN 0.3 mg/dL (<0.1-1.0); TOTAL PROTEIN 5.4 g/dL (6.4-8.2)
[2021-09-16 05:31] LABS: CREATININE 5.5 mg/dL (0.6-1.3)
[2021-09-16 07:56] LABS: ABSOLUTE LYMPHOCYTES 0.6 thou/uL (0.8-5.3); ABSOLUTE MONOCYTES 0.2 thou/uL (0.0-1.2); PLATELET ESTIMATE ADEQUATE
[2021-09-16 08:00] VITALS: BP 104/59
[2021-09-16 12:00] VITALS: BP 109/56
[2021-09-16 20:00] VITALS: BP 114/65
[2021-09-17 00:02] VITALS: BP 124/71
--- NOTE | 2021-09-17 04:25 | NUR ---
PATIENT HAS REMAINED ALERT AND ORIENTED X 4 THROUGHOUT THE SHIFT AND RESTING AT INTERVALS. ATTEMPTED TO USE BIPAP AT HS. FELT CLOSTROPHOBIC AND NEEDED A BREAK. PROVIDED ATIVAN PO AT 0030 AND PATIENT PUT BIPAP BACK ON FROM [phone]. CURRENTLY ON NASAL CANNULA AT 6L/MIN WITH CONTINUOUS OXIMITER SHOWING 99%. VITALS SIGNS STABLE. MEDS PER ORDER. CONTINUE TO MONITOR.
[2021-09-17 05:21] VITALS: BP 109/58
[2021-09-17 08:00] VITALS: BP 123/68
[2021-09-17] MEDS ORDERED: DEXAMETHASONE1 MG PO (13:33)
[2021-09-17] MEDS ORDERED: PROTONIX40 M2 PO (13:33)
[2021-09-17] MEDS ORDERED: DOXYCYCLINE 10100 MG PO (13:33)
[2021-09-17 14:04] VITALS: BP 130/64
[2021-09-17 16:17] VITALS: BP 130/64
--- NOTE | 2021-09-17 18:27 | NUR ---
CM FOLLOWUP PT MED CLEAR FOR DC HOME. PT TO DC HOME WITH . TO [facility] PT FROM [facility]. PT DECLINED REFERRAL TO , BUT PT FAMILY OPEN & RECEPTIVE TO PRIVATE DUTY RESOUCES PROVIDED.
[2021-09-17 18:49] VITALS: BP 121/97
--- NOTE | 2021-09-18 19:16 | CON ---
[address] [address] CONSULTATION Name: GUME HOPE Room: [address] IN M.R.#: [id number] Admission: 09/10/21 Attend Phys: Acacia Ellsworth Discharge: 09/17/21 Date of : 53 Report #: [id number] THIS REPORT FOR: cc: Corby Reynoso Chad W. DO Pervez, Adeel MD ~ DATE OF CONSULTATION: 09/13/2021 REQUESTING PHYSICIAN: Casimiro Rich DO INDICATION FOR CONSULTATION: COVID-19. HISTORY OF PRESENT ILLNESS: This is a 66-year-old gentleman who has a past medical history includes a history of end-stage renal disease. The patient has been on hemodialysis. He is not reported to be vaccinated for COVID. Previously, he also has a history of neuroendocrine tumor with metastasis. The etiology of the patient's renal failure is not completely apparent at this time. Apparently, he has had diabetes, but reported that this resolved after he lost weight. He is also reported to have had some hypertension, but the patient says he was told that his renal failure is unrelated. The patient now has been in the hospital since 09/10. He has been requiring BiPAP while asleep, has been on a heated high-flow nasal cannula while awake. The exact amounts of oxygen he has been on a heated high-flow nasal cannula is not apparent to me from the records; however, there does appear to be need for very high FiO2 earlier and flow rates up to 55 liters are charted. Currently, the patient is on heated high-flow nasal cannula at 30 liters flow with 50% FiO2 and he is saturating 97%. This will be equivalent to about 15 liters oxygen using a regular high-flow nasal cannula. He reports improvement in shortness of breath. Does not have much cough. There is no swelling of lower extremities or calf pain. He is not febrile. REVIEW OF SYSTEMS: For 12 points is negative except as mentioned above. 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 There is a recent echocardiogram, shows a left ventricular ejection fraction of 60% and a pulmonary artery systolic pressure elevated to 50. Previous history of diabetes. The patient says he lost weight and then this resolved. SOCIAL HISTORY: Remote history of smoking. He says he used to smoke when he was in his 20s [place] [address] CONSULTATION Name: GUME HOPE RIKI Room: [address] IN .R.#: [id number] Admission: 09/10/21 Attend Phys: Acacia Ellwsorth Discharge: 09/17/21 Date of : 53 Report #: [id number] ALLERGIES: COUMADIN, HEPARIN WELL PENICILLINS ARE MENTIONED ALLERGIES. FAMILY HISTORY: No pertinent family history known at this time. CURRENT MEDICATIONS: The list is in [facility] and is reviewed. PHYSICAL EXAMINATION: GENERAL: He is alert, awake and oriented. VITAL SIGNS: In the records reviewed, oxygen as above. NECK: Does not show raised JVP. CHEST: Clear to auscultation. HEART: Regular. There is no murmur. ABDOMEN: Soft and nontender. EXTREMITIES: Lower extremities show no edema and no calf tenderness. SKIN: Dry and intact. NEUROLOGIC: Moves all extremities. No focal deficit identified. LABORATORY DATA: The patient's chest x-rays are in [facility] and these are reviewed. Lab work also in [facility] reviewed. ASSESSMENT AND PLAN: 1. Acute hypoxemic respiratory failure secondary to COVID-19. He is on the equivalent of about 15 liters oxygen. He is saturating 97%. I recommend taking him off the heated high-flow nasal cannula and placing him on a regular green high-flow nasal cannula and then titrate the oxygen. He has been on a BiPAP while asleep. He may for now still benefit from continuing BiPAP while asleep. 2. COVID-19. He is not on remdesivir due to renal failure. He is on dexamethasone, which I agree with. At this point, I would start cutting down the dose. 3. Pulmonary infiltrates. He is on doxycycline as well as azithromycin. I discontinued azithromycin and continued with doxycycline. We will switch this over to p.o. He will have his next hemodialysis tomorrow morning. We will plan to repeat a chest x-ray after dialysis and then decide as to whether a CT chest should be considered. 4. History of lung resection. See discussion above. 5. Evaluation for thromboembolic phenomena/pulmonary hypertension/deep venous thrombosis prophylaxis. The patient currently is noted to be on Eliquis 5 mg p.o. b.i.d. If the only indication is DVT prophylaxis, then possibly this could be cut back to 2.5 mg b.i.d., but I would like to work up further and evaluate as to whether there is a possibility of any current thromboembolism and therefore, I kept the current dose for now. Recommend proceeding with venous Dopplers. Note that he does have pulmonary hypertension on his echo, but the V/Q scan is low probability. We will review further and then also decide as to [address] [address] CONSULTATION Name: GUME HOPE Room: [address] IN M.R.#: [id number] Admission: 09/10/21 Attend Phys: Acacia Ellsworth Discharge: 09/17/21 Date of : 53 Report #: [id number] whether a CTA chest should be considered. Note that he does have renal failure. 6. End-stage renal disease, on hemodialysis. 7. History of neuroendocrine tumor with metastasis. 8. Clostridium difficile prophylaxis. We will order Lactinex. Thanks for this consultation. <ELECTRONICALLY SIGNED> By: Conner Ledezma MD 09/18/21 1916 1710 1923Acecilia Ledezma MD /nt
== END 2021-09-17 17:55 | disposition home or self-care (01) | DRG 177 ==
LOC: M.ERS 11:25 → M.TBA-ER 12:45 → M.ORTHSURG 12:45
PROVIDERS: Internal Medicine; Internal Medicine Critical Care Medicine; Nurse Practitioner Family; ADMIT Internal Medicine; ATTEND Internal Medicine
PROC: 5A0945A Assistance with Respiratory Ventilation, 24-96 Consecutive Hours, High Flow/Velocity Cannula (ICD-10-PCS; principal; 2021-09-10)
PROC: 5A09357 Assistance with Respiratory Ventilation, Less than 24 Consecutive Hours, Continuous Positive Airway Pressure (ICD-10-PCS; 2021-09-12)
PROC: 5A0935A Assistance with Respiratory Ventilation, Less than 24 Consecutive Hours, High Flow/Velocity Cannula (ICD-10-PCS; 2021-09-13)
PROC: 5A0935A Assistance with Respiratory Ventilation, Less than 24 Consecutive Hours, High Flow/Velocity Cannula (ICD-10-PCS; 2021-09-14)
PROC: 5A09357 Assistance with Respiratory Ventilation, Less than 24 Consecutive Hours, Continuous Positive Airway Pressure (ICD-10-PCS; 2021-09-14)
PROC: 5A0935A Assistance with Respiratory Ventilation, Less than 24 Consecutive Hours, High Flow/Velocity Cannula (ICD-10-PCS; 2021-09-15)
DX: U07.1 COVID-19 (principal); J96.21 Acute and chronic respiratory failure with hypoxia; N18.6 End stage renal disease; J12.82 Pneumonia due to coronavirus disease 2019; I50.33 Acute on chronic diastolic (congestive) heart failure; N25.81 Secondary hyperparathyroidism of renal origin; I13.2 Hypertensive heart and chronic kidney disease with heart failure and with stage 5 chronic kidney disease, or end stage renal disease; N17.9 Acute kidney failure, unspecified; E78.5 Hyperlipidemia, unspecified; D63.1 Anemia in chronic kidney disease; I27.20 Pulmonary hypertension, unspecified; E11.22 Type 2 diabetes mellitus with diabetic chronic kidney disease; E11.649 Type 2 diabetes mellitus with hypoglycemia without coma; Z88.0 Allergy status to penicillin; Z88.8 Allergy status to other drugs, medicaments and biological substances; Z87.891 Personal history of nicotine dependence; Z79.899 Other long term (current) drug therapy; Z28.21 Immunization not carried out because of patient refusal; Z85.858 Personal history of malignant neoplasm of other endocrine glands